=== PATIENT | female | born 1945 | race Caucasian/White ===

== ENCOUNTER → 2017-04-22 | Outpatient (CLI) | payer MEDICARE, BC | LOC: RAD 16:53 | DX: M54.9 Dorsalgia, unspecified (principal); M47.896 Other spondylosis, lumbar region | CPT/HCPCS: 72110; 73522 ==

== ENCOUNTER → 2021-04-30 | Outpatient (CLI) | payer MEDICARE, BC ==
[~2021-04-30] MED LIST: ASPIRIN 325MG325 MG PO; CINNAMON PO; CRESTOR5 MG PO; HYDROCODON-ACE1 EAC2 PO; LEVOTHYROXINE100 MC2 PO; LOSARTAN POTASS25 MG PO; MAGNESIUM250 MG PO; MELATONIN10 M2 PO; PROTONIX40 MG PO; TRIAMCINOLONE CREAM TOP; VITAMIN B12 PO; VITAMIN D350 MC3 PO; XYZAL5 MG PO; [UNRECOGNIZED DRUG - OTHER] PO
[2021-04-30 11:10] LABS: HEMOGLOBIN 14.3 gm/dl (12.3-15.3); RED BLOOD COUNT 4.7 M/UL (4.00-5.10); WHITE BLOOD COUNT 6.2 K/UL (4.5-11.0)
[2021-04-30 11:39] LABS: BUN/CREATININE RATIO 28 (0-10)
== END ==
LOC: EDSTATUS 10:00 → OPSV2 10:00
PROVIDERS: Orthopaedic Surgery
DX: Z01.818 Encounter for other preprocedural examination (principal); M17.11 Unilateral primary osteoarthritis, right knee
CPT/HCPCS: 36415; 71046; 80048; 83036; 85025; 87081; 93005

== ENCOUNTER 2021-05-14 06:08 | Inpatient (IN) | payer MEDICARE, BC ==
[~2021-05-14] VITALS: Ht 172.7 cm; Wt 95.7 kg
[~2021-05-14 06:08] MED LIST changes: -ASPIRIN 325MG325 MG PO; -HYDROCODON-ACE1 EAC2 PO
[2021-05-15 03:38] LABS: HEMOGLOBIN 12.6 gm/dl (12.3-15.3); RED BLOOD COUNT 4.16 M/UL (4.00-5.10); WHITE BLOOD COUNT 11.4 K/UL (4.5-11.0)
[2021-05-16 04:25] LABS: HEMOGLOBIN 11.7 gm/dl (12.3-15.3); RED BLOOD COUNT 3.87 M/UL (4.00-5.10); WHITE BLOOD COUNT 9.3 K/UL (4.5-11.0)
[2021-05-16] MEDS ORDERED: HYDROCODON-ACE1 EAC2 PO (07:16)
[2021-05-17 03:34] LABS: HEMOGLOBIN 12.7 gm/dl (12.3-15.3); RED BLOOD COUNT 4.16 M/UL (4.00-5.10); WHITE BLOOD COUNT 8.7 K/UL (4.5-11.0)
[2021-05-17] MEDS ORDERED: ASPIRIN 325MG325 MG PO (09:35)
== END 2021-05-17 13:17 | disposition home health service (06) | DRG 470 ==
LOC: OR 06:08 → M/S 17:00 → OR 05-15 14:03 → M/S 05-17 13:17
PROVIDERS: ADMIT Orthopaedic Surgery
PROC: 0SRC0J9 Replacement of Right Knee Joint with Synthetic Substitute, Cemented, Open Approach (ICD-10-PCS; principal; 2021-05-14 07:30)
DX: M17.11 Unilateral primary osteoarthritis, right knee (principal); N17.9 Acute kidney failure, unspecified; R42 Dizziness and giddiness; E78.5 Hyperlipidemia, unspecified; Z20.822 Contact with and (suspected) exposure to COVID-19; E11.9 Type 2 diabetes mellitus without complications; E03.9 Hypothyroidism, unspecified; G47.33 Obstructive sleep apnea (adult) (pediatric); G89.29 Other chronic pain; K76.0 Fatty (change of) liver, not elsewhere classified; K44.9 Diaphragmatic hernia without obstruction or gangrene; Z71.3 Dietary counseling and surveillance; Z90.49 Acquired absence of other specified parts of digestive tract; Z90.89 Acquired absence of other organs; Z91.011 Allergy to milk products; Z88.2 Allergy status to sulfonamides; Z91.018 Allergy to other foods; Z82.49 Family history of ischemic heart disease and other diseases of the circulatory system; Z79.82 Long term (current) use of aspirin; Z87.11 Personal history of peptic ulcer disease; Z88.6 Allergy status to analgesic agent
CPT/HCPCS: 36415; 73560; 76000; 80048; 82962; 83735; 84100; 85025; 86850; 86900; 86901; 97110-GP-CQ; 97116-GP-CQ; 97162; 97166; 97530-GP-CQ; 97535; C1776; J0171; J0690; J1100; J1170; J1885; J2250; J2370; J2405; J2704; J2795; J7030; J7120

== ENCOUNTER → 2021-06-11 | Outpatient (CLI) | payer MEDICARE, BC ==
[~2021-06-11] MED LIST changes: +ASPIRIN 325MG325 MG PO; +HYDROCODON-ACE1 EAC2 PO
== END ==
LOC: ECHO 10:00
DX: R01.1 Cardiac murmur, unspecified (principal); I35.8 Other nonrheumatic aortic valve disorders
CPT/HCPCS: ECHO; 93306

== ENCOUNTER → 2022-02-04 | Outpatient (CLI) | payer MEDICARE, BC | LOC: KOH-I 09:43 | DX: K76.0 Fatty (change of) liver, not elsewhere classified (principal); N26.1 Atrophy of kidney (terminal) | CPT/HCPCS: 76700 ==

== ENCOUNTER → 2022-03-17 | Outpatient (CLI) | payer MEDICARE, BC | LOC: KOH-I 09:00 | DX: N13.30 Unspecified hydronephrosis (principal); N28.1 Cyst of kidney, acquired | CPT/HCPCS: 74176 ==

== ENCOUNTER → 2022-06-09 | Outpatient (CLI) | payer MEDICARE, BC | LOC: KOH-I 08:21 | DX: J98.4 Other disorders of lung (principal); J98.11 Atelectasis | CPT/HCPCS: 71250 ==

== ENCOUNTER 2022-06-12 11:22 | Inpatient (IN) | payer MEDICARE, BC ==
[~2022-06-12] VITALS: Ht 172.7 cm; Wt 99.1 kg
[~2022-06-12 11:22] MED LIST changes: -CINNAMON PO; +CINNAMON500 MG PO; +CRESTOR10 MG PO; -CRESTOR5 MG PO; -LEVOTHYROXINE100 MC2 PO; +LEVOTHYROXINE112 MCG PO; -MAGNESIUM250 MG PO; +MAGNESIUM400 M2 PO
[2022-06-12 12:38] LABS: HEMOGLOBIN 14.7 gm/dl (12.3-15.3); RED BLOOD COUNT 4.85 M/UL (4.00-5.10); WHITE BLOOD COUNT 6.8 K/UL (4.5-11.0)
[2022-06-12 12:52] LABS: BUN/CREATININE RATIO 21 (0-10)
[2022-06-12] MEDS ORDERED: ZINC50 M1 PO (20:40)
[2022-06-13 00:50] LABS: WHITE BLOOD COUNT 6.9 K/UL (4.5-11.0)
[2022-06-13 01:03] LABS: RED BLOOD COUNT 4.21 M/UL (4.00-5.10)
[2022-06-13 01:04] LABS: HEMOGLOBIN 12.6 gm/dl (12.3-15.3)
[2022-06-13 01:18] LABS: BUN/CREATININE RATIO 22 (0-10)
[2022-06-14 01:43] LABS: HEMOGLOBIN 12.8 gm/dl (12.3-15.3); RED BLOOD COUNT 4.3 M/UL (4.00-5.10); WHITE BLOOD COUNT 7.6 K/UL (4.5-11.0)
[2022-06-14] MEDS ORDERED: BRILINTA 90 MG90 MG PO (10:44)
[2022-06-14] MEDS ORDERED: CRESTOR 10 MG T10 MG PO (10:44)
[2022-06-14] MEDS ORDERED: LOPRESSOR 25 MG25 MG PO (10:44)
[2022-06-14] MEDS ORDERED: ISOSORBIDE MONO30 MG PO (10:44)
[2022-06-14] MEDS ORDERED: ASPIRIN EC81 MG PO (10:44)
== END 2022-06-14 12:15 | disposition home or self-care (01) | DRG 247 ==
LOC: ER1 11:22 → CDU 13:40 → PROG CARE 13:40
PROVIDERS: Physician Assistant; Physician Assistant Medical; ADMIT Internal Medicine
PROC: 027034Z Dilation of Coronary Artery, One Artery with Drug-eluting Intraluminal Device, Percutaneous Approach (ICD-10-PCS; principal; 2022-06-13)
PROC: 4A023N7 Measurement of Cardiac Sampling and Pressure, Left Heart, Percutaneous Approach (ICD-10-PCS; 2022-06-13)
PROC: B2111ZZ Fluoroscopy of Multiple Coronary Arteries using Low Osmolar Contrast (ICD-10-PCS; 2022-06-13)
DX: I20.0 Unstable angina (principal); K21.9 Gastro-esophageal reflux disease without esophagitis; Z20.822 Contact with and (suspected) exposure to COVID-19; E55.9 Vitamin D deficiency, unspecified; Z96.651 Presence of right artificial knee joint; I44.7 Left bundle-branch block, unspecified; E11.9 Type 2 diabetes mellitus without complications; E03.9 Hypothyroidism, unspecified; E78.5 Hyperlipidemia, unspecified; J45.909 Unspecified asthma, uncomplicated; E66.9 Obesity, unspecified; Z90.49 Acquired absence of other specified parts of digestive tract; Z88.8 Allergy status to other drugs, medicaments and biological substances; Z82.49 Family history of ischemic heart disease and other diseases of the circulatory system; Z80.9 Family history of malignant neoplasm, unspecified; Z79.4 Long term (current) use of insulin; Z68.33 Body mass index [BMI] 33.0-33.9, adult
CPT/HCPCS: ECHO; 36415; 71045; 80048; 80053; 80061; 82550; 82553; 83036; 83735; 84439; 84443; 84484; 85025; 85027; 85347; 93005; 93306; 93571; 99152; 99153; 99285; C1725; C1769; C1874; C1887; C1894; C9600; G0378; J1644; J2250; J3010; J3246; Q9967